=== PATIENT | female | born 1945 | race Caucasian/White ===

== ENCOUNTER 2018-02-06 15:13 | Outpatient (CLI) | payer MEDICARE, MEDICAID ==
[~2018-02-06 15:13] MED LIST: ALBU8.5H8 IH; ATEN50TA PO; DOXE150C PO; GABA-532 PO; HYDR-3876 PO; TEMA30CA5 PO
== END 2018-02-06 23:59 | disposition home or self-care (01) ==
LOC: 64 CT 15:13
PROVIDERS: ATTEND Family Medicine
DX: S00.83XA Contusion of other part of head, initial encounter (principal); F17.200 Nicotine dependence, unspecified, uncomplicated; I10 Essential (primary) hypertension; J44.9 Chronic obstructive pulmonary disease, unspecified; I25.2 Old myocardial infarction; Z91.041 Radiographic dye allergy status; X58.XXXA Exposure to other specified factors, initial encounter; Y93.89 Activity, other specified; Y92.89 Other specified places as the place of occurrence of the external cause; Y99.8 Other external cause status
CPT/HCPCS: 70450

== ENCOUNTER 2021-09-04 16:29 | Outpatient (CLI) | payer MEDICARE, MEDICAID ==
[~2021-09-04 16:29] MED LIST changes: +ALBU8.5H17 IH; -ALBU8.5H8 IH
[2021-09-04] MEDS ORDERED: HYDR-3965 PO (18:56)
[2021-09-04] MEDS ORDERED: ONDA4TAB12 PO (18:56)
== END 2021-09-04 23:59 | disposition home or self-care (01) ==
LOC: RAD 16:29
PROVIDERS: ATTEND Physician Assistant
DX: S52.501A Unspecified fracture of the lower end of right radius, initial encounter for closed fracture (principal); M25.741 Osteophyte, right hand; M19.041 Primary osteoarthritis, right hand; M19.012 Primary osteoarthritis, left shoulder; W18.30XA Fall on same level, unspecified, initial encounter; Y93.89 Activity, other specified; Y92.89 Other specified places as the place of occurrence of the external cause; Y99.8 Other external cause status
CPT/HCPCS: 29125; 73060; 73090; 73110; 73130; 99284; A4565; A6446; A6449

== ENCOUNTER 2021-09-04 17:38 | Emergency (ER) | payer MEDICARE, MEDICAID ==
[~2021-09-04] VITALS: Ht 149.9 cm; Wt 57.3 kg
[2021-09-04 17:40] VITALS: BP 146/59
[2021-09-04] MEDS ORDERED: HYDROcodone/acetaminophen 5mg/325mg tablet PO ONE (18:05)
[2021-09-04] MEDS ORDERED: ondansetron 4mg rapidly disintigrating tab PO ONE (18:05)
[2021-09-04] MEDS ORDERED: ONDA4TAB12 PO (18:56)
[2021-09-04] MEDS ORDERED: HYDR-3965 PO (18:56)
== END 2021-09-04 19:39 | disposition home or self-care (01) ==
LOC: ER 17:39
DX: S52.591A Other fractures of lower end of right radius, initial encounter for closed fracture (principal); I10 Essential (primary) hypertension; J44.9 Chronic obstructive pulmonary disease, unspecified; G89.29 Other chronic pain; Z90.49 Acquired absence of other specified parts of digestive tract; Z90.710 Acquired absence of both cervix and uterus; Z98.890 Other specified postprocedural states; Z79.899 Other long term (current) drug therapy; W18.39XA Other fall on same level, initial encounter; Y93.89 Activity, other specified; Y92.89 Other specified places as the place of occurrence of the external cause; Y99.8 Other external cause status
CPT/HCPCS: 29125; 99284; A4565; A6446; A6449

== ENCOUNTER 2023-01-19 15:11 | Emergency (ER) | payer MEDICARE, MEDICAID ==
[~2023-01-19] VITALS: Ht 144.8 cm; Wt 60.5 kg
[~2023-01-19 15:11] MED LIST changes: +ONDA4TAB12 PO
[2023-01-19 15:31] VITALS: TEMP 98.1
[2023-01-19] MEDS: normal saline 1000ml 1,000 ML IV SCH ×3 (16:30→18:30)
[2023-01-19] MEDS ORDERED: HYDROmorphone 1 mg/ml syringe IV ONE (16:30)
[2023-01-19] MEDS ORDERED: ondansetron/PF 4mg/2ml inj IV ONE (16:30)
[2023-01-19 17:17] LABS: HEMOGLOBIN 13.5 g/dl (12.0-16.0); MEAN PLATELET VOLUME 7.5 FL (7.4-10.4)
[2023-01-19 17:19] LABS: BASOPHILS # (AUTO) 0.1 X10'3 (0-0.2); BASOPHILS % (AUTO) 0.7 % (0-1); EOSINOPHILS # (AUTO) 0.3 X10'3 (0-0.9); EOSINOPHILS % (AUTO) 3.3 % (0-6); HEMATOCRIT 40.2 % (35.0-45.0); LYMPHOCYTES # (AUTO) 2.3 X10'3 (1.1-4.8); LYMPHOCYTES % (AUTO) 21.4 % (21-51); MEAN CORPUSCULAR HGB CONC 33.5 g/dL (33.0-36.5); MEAN CORPUSCULAR VOLUME 95.4 FL (78-98); MONOCYTES # (AUTO) 0.6 X10'3 (0-0.9); MONOCYTES % (AUTO) 5.7 % (2-12); NEUTROPHILS # (AUTO) 7.3 X10'3 (1.8-7.7); NEUTROPHILS % (AUTO) 68.9 % (42-75); PLATELET COUNT 226 X10'3 (140-440); RED BLOOD COUNT 4.21 X10'6 (4.20-5.60); RED CELL DISTRIBUTION WIDTH 13.9 % (11.5-14.5); WHITE BLOOD COUNT 10.6 X10'3 (4.5-11.0)
[2023-01-19 17:29] LABS: ALANINE AMINOTRANSFERASE 19 U/L (12-78); ALBUMIN 3.6 G/DL (3.4-5.0); ALBUMIN/GLOBULIN RATIO 0.9 (1.1-1.5); ALKALINE PHOSPHATASE 121 IU/L (46-116); ANION GAP 5 (8-16); ASPARTATE AMINO TRANSFERASE 17 U/L (10-37); BILIRUBIN,TOTAL 0.4 MG/DL (0.1-1.0); BLOOD UREA NITROGEN 9 MG/DL (7-18); BUN/CREATININE RATIO 9.6 (10.0-20.0); CHLORIDE 103 MMOL/L (99-107); CREATININE 0.94 MG/DL (0.40-0.90); GLUCOSE 103 MG/DL (70-104); LIPASE 37 U/L (16-77); POTASSIUM 4.4 MMOL/L (3.5-5.1); SODIUM 135 MMOL/L (135-145); TOTAL CARBON DIOXIDE 26.6 MMOL/L (24-32); TOTAL PROTEIN 7.5 G/DL (6.4-8.2); eCRCL 30 ML/MIN; eGFR 58 ML/MIN
[2023-01-19 17:56] VITALS: BP 173/59; PULSE 63; RESP 18; O2SAT 96
[2023-01-19 18:15] LABS: BILIRUBIN,URINE NEGATIVE (Neg); CLARITY,URINE CLOUDY (Clear); COLOR,URINE STRAW (Yellow); GLUCOSE, URINE NEGATIVE (Neg); KETONES,URINE NEGATIVE (Neg); LEUKOCYTE ESTERASE ,URINE NEGATIVE (Neg); NITRITES, URINE POSITIVE (Neg); OCCULT BLOOD,URINE SMALL (Neg); PROTEIN,URINE NEGATIVE (Neg); UROBILINOGEN,URINE 0.2 E.U/dL (0.2-1.0)
[2023-01-19 18:20] LABS: UA COLLECTION TYPE VOIDED
[2023-01-19 18:21] LABS: MUCUS STRANDS FEW /LPF (Neg)
[2023-01-19 18:22] LABS: BACTERIA,URINE 4+ /HPF (Neg); RBC,URINE 0-2 /HPF (0-2); WBC,URINE 0-4 /HPF (0-4)
[2023-01-19 19:03] LABS: SQUAMOUS EPITHELIAL CELL,UR FEW /LPF (FEW)
--- NOTE | 2023-01-19 19:09 | NUR ---
iv dc'd pt being discharged dressing applied
== END 2023-01-19 19:28 | disposition home or self-care (01) ==
LOC: ER 15:12
DX: S22.059A Unspecified fracture of T5-T6 vertebra, initial encounter for closed fracture (principal); S22.069A Unspecified fracture of T7-T8 vertebra, initial encounter for closed fracture; I10 Essential (primary) hypertension; J44.9 Chronic obstructive pulmonary disease, unspecified; Z98.890 Other specified postprocedural states; Z90.710 Acquired absence of both cervix and uterus; W19.XXXA Unspecified fall, initial encounter; Y93.89 Activity, other specified; Y92.89 Other specified places as the place of occurrence of the external cause; Y99.8 Other external cause status
CPT/HCPCS: 36415; 71111; 72074; 72128; 72131; 80053; 81001; 83690; 85025; 96374; 96375; 99285; J1170; J2405; J7030

== ENCOUNTER 2023-01-31 15:47 | Outpatient (CLI) | payer MEDICARE, MEDICAID | END 2023-01-31 23:59 | disposition home or self-care (01) | LOC: RAD 15:47 | PROVIDERS: ATTEND Family Medicine | DX: S22.050A Wedge compression fracture of T5-T6 vertebra, initial encounter for closed fracture (principal); X58.XXXA Exposure to other specified factors, initial encounter; Y93.89 Activity, other specified; Y92.89 Other specified places as the place of occurrence of the external cause; Y99.8 Other external cause status | CPT/HCPCS: 72146 ==

== ENCOUNTER 2023-07-07 15:22 | Outpatient (CLI) | payer MEDICARE, MEDICAID | END 2023-07-07 23:59 | disposition home or self-care (01) | LOC: RAD 15:22 | PROVIDERS: ATTEND Family Medicine | DX: S82.54XD Nondisplaced fracture of medial malleolus of right tibia, subsequent encounter for closed fracture with routine healing (principal); S82.891D Other fracture of right lower leg, subsequent encounter for closed fracture with routine healing; X58.XXXD Exposure to other specified factors, subsequent encounter | CPT/HCPCS: 73700 ==

== ENCOUNTER 2024-01-14 15:38 | Outpatient (CLI) | payer MEDICARE, MEDICAID ==
[~2024-01-14 15:38] MED LIST changes: +ONDA-243 PO; -ONDA4TAB12 PO
== END 2024-01-14 23:59 | disposition home or self-care (01) ==
LOC: RAD 15:38
PROVIDERS: ATTEND Student in an Organized Health Care Education/Training Program
DX: S82.891D Other fracture of right lower leg, subsequent encounter for closed fracture with routine healing (principal); S22.029D Unspecified fracture of second thoracic vertebra, subsequent encounter for fracture with routine healing; M25.471 Effusion, right ankle; M85.871 Other specified disorders of bone density and structure, right ankle and foot; X58.XXXD Exposure to other specified factors, subsequent encounter
CPT/HCPCS: 73610

== ENCOUNTER 2024-04-02 08:17 | Emergency (ER) | payer MEDICARE, MEDICAID ==
[~2024-04-02] VITALS: Ht 149.9 cm; Wt 59.1 kg
[2024-04-02 16:22] VITALS: TEMP 96.8
[2024-04-02] MEDS: LIDOcaine 1% W/epiNEPHrine 1:100,000 20ml vial SQ ONE (16:26)
[2024-04-02 17:38] VITALS: BP 160/57; PULSE 66; RESP 16; O2SAT 94
== END 2024-04-02 17:41 | disposition home or self-care (01) ==
LOC: ER 08:18
DX: S06.0XAA Concussion with loss of consciousness status unknown, initial encounter (principal); S01.01XA Laceration without foreign body of scalp, initial encounter; J44.9 Chronic obstructive pulmonary disease, unspecified; I10 Essential (primary) hypertension; Z90.710 Acquired absence of both cervix and uterus; Z90.49 Acquired absence of other specified parts of digestive tract; Z98.890 Other specified postprocedural states; W19.XXXA Unspecified fall, initial encounter; Y93.01 Activity, walking, marching and hiking; Y92.89 Other specified places as the place of occurrence of the external cause; Y99.8 Other external cause status
CPT/HCPCS: 12001; 70450; 71045; 99284; A6402; A6446; A6449; J7030; Z7610

== ENCOUNTER 2024-11-20 02:04 | Inpatient (IN) | payer MEDICARE, MEDICAID ==
[2024-11-20] VITALS (8 sets, daily range): BP systolic 142; BP diastolic 50; PULSE 72–79; RESP 15–24; TEMP 98.2; O2SAT 95–99
[~2024-11-20] VITALS: Ht 144.8 cm; Wt 53.8 kg
[~2024-11-20 02:04] MED LIST changes: +ASPI-1071 PO; +ATOR10TA70 PO; +DULO60CA65 PO; +LISI10TA27 PO; -ONDA-243 PO; -TEMA30CA5 PO; +ZAFI20TA PO; +ZOLP5TAB18 PO
--- NOTE | 2024-11-20 02:17 | Physician Documentation ---
History of Present Illness ~ Stated Complaint: ALOC/COVID Time Seen by MD: 02:14 Primary Medical Doctor: Dr. Harding HPI 79-year-old female who presents by EMS from a [place] [facility], with altered mental status The patient reportedly tested positive for COVID-19 a couple of days ago. Today she reportedly was doing well until around 8:00 p.m., and then this evening was found minimally responsive. EMS reports she was wheezing and so she was given a breathing treatment. Her oxygen saturations were in the 90s. Here in the ED, the patient is somnolent, but does awaken to voice and follows some simple commands. I can not understand her speech. History is limited Medication Reconciliation Allergies: Coded Allergies: morphine (Verified Allergy, Unknown, itchiness, redness, swelling of fingers, 10/09/24) Uncoded Allergies: IV CONTRAST (Allergy, Intermediate, WELTS, REDNESS, SWELLING, 10/05/24) Scheduled Aspirin (Ecotrin*), 1 TAB PO DAILY, (Reported) Atenolol (Atenolol), 1 TABLET PO HS, (Reported) Atenolol (Atenolol), 1 TAB PO DAILY, (Reported) Atenolol (Atenolol), 1 TAB PO DAILY, (Reported) Atorvastatin Calcium (Atorvastatin Calcium), 1 TAB PO DAILY, (Reported) Doxepin Hcl (Doxepin Hcl), 150 MG PO HS, (Reported) Duloxetine HCl (Duloxetine HCl), 2 CAP PO DAILY, (Reported) Gabapentin (Gabapentin), 300 MG PO TID, (Reported) Lisinopril (Lisinopril), 1 TAB PO DAILY, (Reported) Zafirlukast (Zafirlukast), 1 TAB PO BID, (Reported) Zolpidem Tartrate (Zolpidem Tartrate), 10 MG PO HS, (Reported) Scheduled PRN Albuterol Sulfate (Proair Hfa), 2 PUFFS IH Q4H PRN for SOB or wheezing Hydrocodone Bit/Acetaminophen (Hydrocodon-Acetaminophn 10-325 tablet), 1 TAB PO Q4H PRN for pain, (Reported) Hydrocodone Bit/Acetaminophen (Hydrocodon-Acetaminophn 10-325 tablet), 1 TAB PO Q4H PRN for pain, (Reported) Hydrocodone/Acetaminophen (Lortab 7.5-325 mg Tablet), 1 TAB PO Q8H PRN for pain, (Reported) Ropinirole Hcl (REQUIP tablet), 1 TAB PO HS PRN for restless legs, (Reported) Ropinirole Hcl (REQUIP tablet), 1 TAB PO HS PRN for restless legs, (Reported) Miscellaneous Medications Doxepin HCl (Doxepin HCl), (Reported) Doxepin HCl (Doxepin HCl), (Reported) Gabapentin (Neurontin), (Reported) Gabapentin (Neurontin), (Reported) Zolpidem Tartrate (Ambien), (Reported) Zolpidem Tartrate (Ambien), 1 TAB PO, (Reported) Zolpidem Tartrate (Ambien), (Reported) Zolpidem Tartrate (Ambien), 1 TAB PO, (Reported) Past Medical History Past Medical History: *CARDIOVASCULAR*, Hypertension, COPD, Chronic Back Pain Past Surgical History: abdominal surgery, appendectomy, cholecystectomy, c- section, hysterectomy, orthopedic surgeries Alcohol Use: None Drug Use: none Lives In: Home Review of Systems Unable to obtain complete ROS: altered mental status Physical Exam Physical Exam General: This is an ill-appearing older woman HEENT: Atraumatic, pupils are 3 mm and sluggish, oropharynx is dry Heart: Regular rate and rhythm, normal-appearing peripheral perfusion Lungs: Coarse breath sounds bilateral with expiratory wheezes, no respiratory distress, normal oxygen saturation on room air Abdomen: Soft, nondistended, no reaction to palpation of the abdomen Extremities: Warm and well-perfused, no significant edema Neuro: The patient is not alert, does not answer questions, but does follow some simple commands, appears to have a global encephalopathy but no focal weakness, moves all extremities Progress Results/Orders Results/Orders Orders - HOA LISA MD Urinalysis, Cult If Indicated (11/20/24 02:30) Culture Blood (11/20/24 02:30) Chest,Single View (11/20/24 02:40) Abg (Arterial Blood Gas) (11/20/24 02:51) Ct Head (11/20/24 03:55) Page Hospitalist (11/20/24 04:26) Completed Orders - HOA LISA MD Electrocardiogram (11/20/24 02:30) Cbc/Diff (11/20/24 02:30) MG (11/20/24 02:30) Chest,Single View (11/20/24 02:40) Procalcitonin (11/20/24 02:30) BMP (11/20/24 02:30) Lacticsepsis (11/20/24 02:30) Man Diff (11/20/24 02:44) Normal Saline 500ml Iv Soln (Sodium Chlo (11/20/24 03:45) Ct Head (11/20/24 03:55) Medications Received in ER Medications (Trade) Dose Ordered Sig/Libra Route PRN Reason Start Time Stop Time Status Last Admin Dose Admin Sodium Chloride 500 ml @ 1,000 mls/hr ONCE ONCE IV 11/20/24 03:45 11/20/24 04:14 DC 11/20/24 04:08 1,000 MLS/HR Vital Signs 11/20/24 11/20/24 11/20/24 11/20/24 02:13 02:21 02:26 03:37 Temp 98.4 Pulse 66 63 71 Resp 26 16 14 14 B/P (MAP) 104/74 104/74 (84) 114/48 (70) Pulse Ox 100 99 99 Laboratory Tests Test 11/20/24 02:44 11/20/24 03:01 White Blood Count 6.3 Red Blood Count 3.28 L Hemoglobin 10.3 L Hematocrit 30.6 L Mean Corpuscular Volume 93.5 Mean Corpuscular Hemoglobin 31.3 H Mean Corpuscular Hemoglobin Concent 33.5 Red Cell Distribution Width 14.6 H Platelet Count 188 Mean Platelet Volume 7.6 Neutrophils (%) (Auto) 57.5 Lymphocytes (%) (Auto) 25.3 Monocytes (%) (Auto) 16.8 H Eosinophils (%) (Auto) 0.1 Basophils (%) (Auto) 0.3 Neutrophils # (Auto) 3.6 Lymphocytes # (Auto) 1.6 Monocytes # (Auto) 1.1 H Eosinophils # (Auto) 0.0 Basophils # (Auto) 0.0 CBC Comment Differential Total Cells Counted 100 Neutrophils % (Manual) 67.0 Lymphocytes % (Manual) 19.0 L Monocytes % (Manual) 14.0 H Platelet Estimate Normal Red Blood Cell Morphology Normal Basophilic Stippling Sodium Level 138 Potassium Level 5.0 Chloride Level 107 Carbon Dioxide Level 24.2 Anion Gap 7 L Blood Urea Nitrogen 54 H Creatinine 1.10 H Estimated GFR/1.73 m2 48 BUN/Creatinine Ratio 49.1 H Glucose Level 115 H Lactic Acid Level 1.0 Calcium Level 7.3 L Magnesium Level 2.5 H Albumin 2.5 L Procalcitonin < 0.05 Chemistry Comments Blood Gas Specimen Type Arterial Blood Gas Puncture Site Rb O2 Saturation 97.5 Arterial Blood pH (Temp corrected) 7.327 L Arterial Blood pCO2 (Temp correct) 37.5 Arterial Blood pO2 (Temp corrected) 108.4 H Arterial Blood PO2/FiO2 Ratio 2.70 Arterial Blood HCO3 19.1 L Arterial Blood Base Excess -6.2 L Arterial Blood Oxyhemoglobin 96.9 Arterial Blood Carboxyhemoglobin 0.3 L Arterial Blood Methemoglobin 0.3 Arterial Blood Deoxyhemoglobin 2.5 Joaquin Test Na Blood Gas Hemoglobin 11.2 L Blood Gas Temperature 37.1 Blood Gas Liter Flow 5 Blood Gas Modality Nasal cannula FiO2 40.0 Microbiology Date/Time Source Procedure Growth Status 11/20/24 02:44 Blood A/C Left Blood Culture - Preliminary NEGATIVE (LESS THAN 24 HOURS) Resulted EKG/XRAY/CT/US/VASC/MRI EKG : Additional Comment I personally interpreted the EKG and this shows: Left bundle branch block, rate of 65, QTC elevated 549, no STEMI CT : Impression I personally interpreted the CT scan, and this shows no acute hemorrhage Consults/PCP Consults/PCP : Additional Comment Consult: I spoke to the internal medicine service, for admission in the hospital Medical Decision Making Differential Dx:Considerations: Include: dehydration, DKA, encephalopathy, hyponatremia, hypoxia, drug overdose, encephalopathy, medication toxicity, infection - sepsis, infection - UTI, respiratory failure Additional Information The patient presents with altered mental status in the setting of a reported COVID-19 infection. Here in the ED she is altered, but is following some simple commands. She appears to have a global encephalopathy. EKG is reassuring. She is not hypoxic. ABG is reassuring, no hypercarbia. Labs overall show mild dehydration. Head CT without acute hemorrhage. Chest x-ray without pneumonia. The cause of her encephalopathy appears to be related to her COVID infection and dehydration. Urinalysis is pending, she could also have a UTI. She will be admitted to the medicine service for further workup and treatment. Departure Impression: Primary Impression: COVID-19 Additional Impression: Encephalopathy acute Referrals: NO PRIMARY CARE PROVIDER (PCP) Signature Scribe Signature: na Attestation: HOA Daniels MD Nov 20, 2024 02:17
--- NOTE | 2024-11-20 02:31 | ELECTROCARDIOGRAPH REPORT ---
[facility] Test Date: 2024-11-20 Test Time: 02:15:19 Pat Name: JULIANA SINGLETON Department: EMERGENCY ROOM Room: [place] [address] Gender: F [employer] Analyst: MOHINDER : 1945 Requested By: HOA LISA Order Number: [id number] Reading MD: Dr. Tony Godoy Measurements Intervals [place] Rate: 65 P: 12 CO: 143 QRS: -20 QRSD: 153 T: 69 QT: 527 QTc: 549 Interpretive Statements Atrial-paced complexes Left bundle branch block Electronically Signed On 11-25-2024 21:46:[address] Tony Godoy Please click the below link to view image of tracing.
--- NOTE | 2024-11-20 03:00 | RADIOLOGY REPORT ---
CHEST RADIOGRAPH Indication: SEPSIS Technique: Single frontal view of the chest was obtained COMPARISON: NM NM LUNGS on DOS: 10/06/24, DI CHEST,SINGLE VIEW on DOS: 10/05/24, DI CHEST,SINGLE VIEW on DOS: 04/02/24, DI SANDRINE RIBS WITH PA CHEST on DOS: 01/19/23, DI THORACIC SPINE COMPLETE on DOS: 01/19/23 FINDINGS: Lines and Tubes: None Lungs: Clear Pleura: No effusion. No pneumothorax. Cardiomediastinal contours: Unremarkable Bones: Unremarkable IMPRESSION: 1. No acute disease.
[2024-11-20 03:07] LABS: ABG BASE EXCESS -6.2 mmol/L (-2.0-3.0); ABG HCO3 19.1 mmol/L (21.0-28.0); ABG OXYGEN SATURATION 97.5 % (94.0-98.0); ABG PCO2 (T) 37.5 mmHg (32.0-45.0); ABG PH (T) 7.327 (7.350-7.450); ABG PO2 (T) 108.4 mmHg (83.0-108.0); FCOHb 0.3 % (0.5-1.5); FHHb 2.5 % (0.0-5.0); FIO2 40.0 mmHg/%; FLOW 5 L/min; FMetHb 0.3 % (0.0-1.5); FO2Hb 96.9 % (94.0-98.0); MODE NASAL CANNULA; PATIENT TEMPERATURE 37.1; TOTAL HEMOGLOBIN 11.2 G/dl (12.0-16.0)
[2024-11-20 03:08] LABS: MEAN PLATELET VOLUME 7.6 FL (7.4-10.4); RED CELL DISTRIBUTION WIDTH 14.6 % (11.5-14.5)
[2024-11-20 03:33] LABS: CREATININE 1.10 MG/DL (0.40-0.90); LYMPHOCYTES % (MANUAL) 19.0 % (21-51); MONOCYTES % (MANUAL) 14.0 % (2-12); NEUTROPHILS % (MANUAL) 67.0 % (42-75); TOTAL CARBON DIOXIDE 24.2 MMOL/L (24-32); eCRCL 25 ML/MIN; eGFR 48 ML/MIN
[2024-11-20 03:34] LABS: PLATELET ESTIMATE NORMAL
[2024-11-20] MEDS: normal saline 500ml IV soln 500 ML IV ONE ×2 (04:08→10:45)
--- NOTE | 2024-11-20 04:21 | RADIOLOGY REPORT ---
EXAM: CT CT HEAD INDICATION: altered, COVID TECHNIQUE: CT of the head without intravenous contrast. Radiation Dose : 1. Head: CT Dose: CTDI volume is 49.01 mGy. Dose-length product is 876.09 mGy*cm The dose indicators for CT are the volume Computed Tomography (CT) Dose Index (CTDIvol) and the Dose Length Product (DLP), and are measured in units of mGy and mGy-cm, respectively. These indicators are not patient dose, but values generated from the CT scanner acquisition factors. The report includes radiation exposure data for exposures received during this examination. COMPARISON: CT CT HEAD on DOS: 10/07/24, CT CT HEAD on DOS: 04/02/24, CT HEAD on DOS: 02/06/18 FINDINGS: There is no evidence of acute intracranial hemorrhage, extra-axial collection, mass effect, midline shift, herniation or hydrocephalus. Increased prominence of the ventricles, sulci and cisterns consistent with the sequelae of atrophic cortical volume loss. The ryan-white differentiation is intact. Moderate diffuse confluent periventricular and subcortical white matter hypoattenuation is nonspecific but may be related to small vessel ischemic disease. The visualized paranasal sinuses and mastoid air cells are clear. The surrounding soft tissues and osseous structures are unremarkable. IMPRESSION: 1. No acute intracranial abnormality. 2. Chronic sequelae of microangiopathy and atrophic cortical volume loss. Radiation optimization: All CT scans at this facility use at least one of these dose optimization techniques: automated exposure control mA and/or kV adjustment per patient size (includes targeted exams where dose is matched to clinical indication) or iterative reconstruction.
[2024-11-20] MEDS ORDERED: ZOLP-679 PO (04:33)
[2024-11-20] MEDS ORDERED: GABA300C (04:33)
[2024-11-20] MEDS ORDERED: ROPI0.2544 PO (04:33)
[2024-11-20] MEDS ORDERED: HYDR-3972 PO (04:33)
[2024-11-20] MEDS ORDERED: DOXE50CA4 (04:33)
[2024-11-20] MEDS ORDERED: ZOLP-679 (04:33)
[2024-11-20] MEDS ORDERED: ATEN50TA8 PO (04:33)
[2024-11-20] MEDS ORDERED: magnesium sulf-water 2g/50mL 50 ML IV PRN (04:35)
[2024-11-20] MEDS ORDERED: PERFLUTREN PROTEIN-A MICROSPHR (Optison) 0.22 MG/ML 3ML VIAL IV PRN (04:35)
[2024-11-20] MEDS ORDERED: magnesium sulf-water 4G/100mL 100 ML IV PRN (04:35)
[2024-11-20] MEDS ORDERED: magnesium Cl slow-release 64mg tablet PO PRN (04:35)
[2024-11-20] MEDS ORDERED: potassium Cl 40MEQ/1/2NS 520ml 520 ML IV PRN (04:35)
[2024-11-20] MEDS ORDERED: potassium Cl 20 mEq SR tablet PO PRN ×2 (04:35)
[2024-11-20] MEDS ORDERED: magnesium hydroxide 30ml (MOM) UD suspension PO PRN (04:35)
[2024-11-20] MEDS ORDERED: mag hydrox/Alum hydrox/simeth 30ml oral suspension PO PRN (04:35)
--- NOTE | 2024-11-20 05:22 | HISTORY AND PHYSICAL-Residence ---
History & Physical Providers to CC Resident Creating Document: EDDIE SCOTT, RES ~ History of Present Illness Primary Medical Doctor: Dr. Harding Reason for Admit\Complaint: COVID/metabolic encephalopathy History of Present Illness An 79-year-old female with COPD, HTN, chronic pain, depression and a prior September admission for acute dyspnea (CXR with left and right opacities; echo Sep: LVEF 65%, V/Q negative) who [facility] with [facility] status. She tested COVID-19 positive a few days ago. Tonight she was found minimally responsive, wheezing and somnolent; EMS gave bronchodilator treatments and O2 (saturation in the 90s). In ED she is somnolent but arousable to voice and follows some commands, speech difficult to understand. No clear focal neurologic deficit. Labs here: Hgb 10.3, MCV 93.5, RDW 14.6; ABG pH 7.32, pCO2 37.5, HCO3 ~19 (mild metabolic acidosis); creatinine 1.10, glucose 115, lactic acid 1.0; procalcitonin negative. Noncontrast head CT: no acute intracranial hemorrhage; chronic microvascular changes. Chest x-ray today normal. Blood cultures sent. Patient currently hemodynamically stable but with encephalopathy and respiratory wheeze in the setting of recent COVID. Allergies: Coded Allergies: morphine (Verified Allergy, Unknown, itchiness, redness, swelling of fingers, 10/09/24) Uncoded Allergies: IV CONTRAST (Allergy, Intermediate, WELTS, REDNESS, SWELLING, 10/05/24) Home Medications Home Medications Active Proair Hfa (Albuterol Sulfate) 8.5 Gm Hfa.aer.ad 2 Puffs IH Q4H PRN Reported Ambien (Zolpidem Tartrate) 10 Mg Tablet 1 Tab PO Ambien (Zolpidem Tartrate) 10 Mg Tablet Atenolol 50 Mg Tablet 1 Tab PO DAILY REQUIP tablet (Ropinirole Hcl) 0.25 Mg Tablet 1 Tab PO HS PRN Neurontin (Gabapentin) 300 Mg Capsule Hydrocodon-Acetaminophn 10-325 tablet (Acetaminophen/Hydrocodone Bitart) 10mg- 325mg Tablet 1 Tab PO Q4H PRN Doxepin HCl 50 Mg Capsule Ambien (Zolpidem Tartrate) 10 Mg Tablet 1 Tab PO Ambien (Zolpidem Tartrate) 10 Mg Tablet Atenolol 50 Mg Tablet 1 Tab PO DAILY REQUIP tablet (Ropinirole Hcl) 0.25 Mg Tablet 1 Tab PO HS PRN Neurontin (Gabapentin) 300 Mg Capsule Hydrocodon-Acetaminophn 10-325 tablet (Acetaminophen/Hydrocodone Bitart) 10mg- 325mg Tablet 1 Tab PO Q4H PRN Doxepin HCl 50 Mg Capsule Ecotrin* (Aspirin) 81 Mg Tablet.dr 1 Tab PO DAILY 30 Days Atorvastatin Calcium 10 Mg Tablet 1 Tab PO DAILY Zafirlukast 20 Mg Tablet 1 Tab PO BID Lisinopril 10 Mg Tablet 1 Tab PO DAILY Duloxetine HCl 60 Mg Capsule.dr 2 Cap PO DAILY Zolpidem Tartrate 5 Mg Tablet 10 Mg PO HS 30 Days Doxepin Hcl 150 Mg Capsule 150 Mg PO HS Lortab 7.5-325 mg Tablet (Hydrocodone/Acetaminophen) 1 Each Tablet 1 Tab PO Q8H PRN Gabapentin 300 Mg Capsule 300 Mg PO TID Atenolol 50 Mg Tablet 1 Tablet PO HS Past Medical History Past Medical History Hypertension Chronic pain disorder Depression COPD Allergies Past Surgical History Surgical History Comment Multiple orthopedic surgeries: Right ankle repair surgery Complicated cholecystectomy leading to exploratory laparotomy Past Social History Social History Comment Based on past medical records: Smokes over half pack of cigarettes per day for 55 years, no alcohol /illicit use of drugs Based on past medical records: Patient ambulates independently without use of any assistive devices currently was transferred from a nursing facility Smoking: Cigarettes Alcohol Use: None Drug Use: None Lives In: Home ROS ROS Could not be obtained Unable to obtain: altered mental status Exam Vitals: Vital Signs Date Time Temp Pulse Resp B/P (MAP) Pulse Ox O2 Delivery O2 Flow Rate FiO2 11/20/24 04:47 67 16 104/58 (73) 99 11/20/24 02:13 98.4 General: ANO x1, drowsy and difficult to arouse HEENT: Atraumatic, normocephalic, EOMI, anicteric sclera ; pale conjunctiva Neck: Trachea midline. Supple, full range of motion, no JVD Cardiac: Regular rhythm, regular rate with no murmurs all over the precordium. Respiratory: Diminished breath sounds with wheezing Gastrointestinal: Abdomen symmetric, non-distended, soft, non-tender, a linear abdominal scar present Musculoskeletal: No pedal edema Neurological: Could not be performed Skin: Warm and dry Diagnostic Data Last Recorded Lab Results: 11/20/24 0244 11/20/24 0244 Advance Care Planning Advanced Care plannin - 30 Minutes Additional Plan 1) Altered mental status (AMS) acute/subacute Metabolic encephalopathy in the setting of recent COVID Assessment: Differentials include infection-related delirium, metabolic factors (mild metabolic acidosis), hypoxia/hypercapnia (currently no hypercapnia) Plan: Admit for serial neurologic checks q1h Hold sedating medications (Otisco, Ambien, doxepin, other [employer] depressants) Workup: Ca: 7.3, M.5, Phosphate-ordered, LFTs ordered, TSH ordered and glucose 115 Blood cultures pending Clinically did not appear as opioid overdose If AMS not improving or focal deficits develop, neurology consult and consider repeat head CT/MRI UA tox ordered Ammonia levels ordered Urinalysis with cultures pending Ethyl alcohol level ordered 2) COVID-19, symptomatic (recent positive) Assessment: COVID positive with respiratory wheeze and altered mentation; oxygen saturations in the 90s on room air currently (no clear hypoxemic respiratory failure now) No evidence of bacterial superinfection (procalcitonin negative Plan: Contact precautions / COVID isolation Supportive care: supplemental O2 PRN to maintain SpO2 above 92%. As patient is currently on 2 L of oxygen, she qualifies for steroids hence initiated dexamethasone 6 mg daily Initiated remdesivir for 200 mg IV day 1 followed by 100 mg IV for 4 days Please consult ID in a.m. Monitor respiratory status closely 3) COPD exacerbation with wheeze Assessment: Wheeze treated by EMS with nebulizers; no current hypoxemia. Likely COPD exacerbation triggered by viral illness (COVID) Plan: Bronchodilator therapy: albuterol/ipratropium nebulizer PRN Ordered IV dexamethasone 6 mg daily for 7 days Ordered ceftriaxone plus azithromycin Incentive spirometry once stable 4) Metabolic acidosis (ABG pH 7.32, HCO3 19) DORIS, prerenal Assessment: Mild metabolic acidosis without elevated lactate; etiology likely multifactorial Plan: Repeat BMP and arterial blood gas 12h to trend pH and bicarbonate If worsening acidosis or evidence of hypoperfusion, consider consulting nephrology Creatinine is currently 1.10, normal in September, continue IV fluids at 100 cc/hour Urine lytes ordered 5) Infection / sepsis evaluation Assessment: COVID positive; no current evidence of bacterial sepsis (normal lactate, procalcitonin negative) Plan: Continue blood cultures x2 Antibiotics as above Monitor vitals, lactate, CBC. 6) Anemia-normocytic normochromic Assessment: Hgb 10.3, mild anemia chronic. No acute bleeding. Plan: Monitor CBC daily Iron studies ordered follow up 7. Hypertension: Continue home medications lisinopril and atenolol after med rec 8. Chronic pain disorder: Hold gabapentin and Otisco until patient's mentation is back to baseline 9. Allergies: Continue home medications zafirlukast after med rec 10: Depression: Hold home medications duloxetine doxepin for now 11. Insomnia: Hold home medication Ambien Code Status: Full Code (according to POLST form at bedside) DVT Prophylaxis: Heparin SQ Eddie Scott MD Internal Medicine Resident, PGY-2 agree w/ care and plan chart reviewed and patient assessed Date of Service: Nov 20, 2024 Billing Provider: SHAWANDA FAULKNER MD, GAURAV, RES Nov 20, 2024 05:22 SHAWANDA FAULKNER MD Nov 20, 2024 11:16
[2024-11-20] MEDS: normal saline 1000ml 1,000 ML IV SCH (05:33)
[2024-11-20] MEDS ORDERED: ipratropium/albuterol 3ml nebule NEB PRN (05:40)
[2024-11-20] MEDS ORDERED: REMDESIVIR INJ (loading dose) 200 MG in normal saline 100ml IV soln 100 ML IV ONE (05:40)
[2024-11-20] MEDS ORDERED: ipratropium/albuterol 3ml nebule NEB SCH (07:00)
[2024-11-20] MEDS: CefTRIAXone/D5W-Rocephin 1gm 50 ML IV SCH (07:37)
[2024-11-20] MEDS: azithromycin/NS 500mg/250ml 250 ML IV SCH (07:37)
[2024-11-20] MEDS: heparin, porcine 5000 units/ml vial SQ SCH (07:38)
[2024-11-20] MEDS: K and/or MAG REPLACEMENT MC SCH (07:38)
[2024-11-20 07:45] LABS: MEAN PLATELET VOLUME 7.5 FL (7.4-10.4); RED CELL DISTRIBUTION WIDTH 15.1 % (11.5-14.5)
[2024-11-20] MEDS: dexamethasone 4mg/ml inj IV SCH (07:51)
[2024-11-20] MEDS: docusate sod 100mg capsule PO SCH (07:51)
[2024-11-20] MEDS ORDERED: REMDESIVIR INJ (loading dose) 100 MG in normal saline 100ml IV soln 100 ML IV SCH (08:00)
[2024-11-20 08:47] LABS: CREATININE 1.00 MG/DL (0.40-0.90); PHOSPHORUS 3.6 MG/DL (2.3-4.5); TOTAL CARBON DIOXIDE 23.3 MMOL/L (24-32); eCRCL 27 ML/MIN; eGFR 53 ML/MIN
[2024-11-20] MEDS: acetaminophen 1,000mg/100ml IV 100 ML IV SCH (09:14)
[2024-11-20 09:26] LABS: ETHANOL < 10 MG/DL (<10)
[2024-11-20 09:41] LABS: % IRON SATURATION 8 % (11-46)
[2024-11-20] MEDS: LidoCAINE 2% Topical Jelly 11mL syringe (UROJET) TOP ONE (10:45)
[2024-11-20 12:31] LABS: PRO BRAIN NATRIURETIC PEPTIDE 154 PG/ML (0-450)
[2024-11-20 12:33] LABS: OSMOLALITY 304 MOSM/K (280-300)
[2024-11-20] MEDS: albuterol 60 PUFF/8GM Inhaler (90mcg/1 puff) IH SCH (12:33)
[2024-11-20] MEDS ORDERED: acetaminophen 1,000mg/100ml IV 100 ML IV SCH (14:00)
[2024-11-20 14:26] LABS: LEUKOCYTE ESTERASE ,URINE NEGATIVE (Neg); NITRITES, URINE POSITIVE (Neg); OCCULT BLOOD,URINE NEGATIVE (Neg)
[2024-11-20 14:31] LABS: UA COLLECTION TYPE FOLEY CATH
[2024-11-20 14:33] LABS: CREATININE,URINE RANDOM 59.0 MG/DL; MUCUS STRANDS FEW /LPF (Neg); SQUAMOUS EPITHELIAL CELL,UR FEW /LPF (FEW); URINE AMPHETAMINE SCREEN NEGATIVE (Neg); URINE BARBITUATE SCREEN NEGATIVE (Neg); URINE BENZODIAZEPINES SCREEN NEGATIVE (Neg); URINE CANNABINOID SCREEN NEGATIVE (Neg); URINE COCAINE SCREEN NEGATIVE (Neg); URINE METHADONE SCREEN NEGATIVE (Neg); URINE OPIATE SCREEN POSITIVE (Neg); URINE PHENCYCLIDINE SCREEN NEGATIVE (Neg)
[2024-11-20 14:38] LABS: OSMOLALITY UA 519.0 MOSM/K (50-1400)
[2024-11-20 15:01] LABS: TOTAL PROTEIN,URINE RANDOM 29.6 MG/DL
--- NOTE | 2024-11-20 15:36 | RADIOLOGY REPORT ---
COMPUTERIZED TOMOGRAPHY CHEST/ABDOMEN/PELVIS WITHOUT INTRAVENOUS CONTRAST CLINICAL HISTORY: sepsis COMPARISON: None TECHNIQUE: Axial CT images of the chest, abdomen and pelvis were obtained. 2-D coronal and sagittal reformatted images were provided. Radiation optimization: All CT scans at this facility use at least one of these dose optimization techniques: Automated exposure control mA and/or kV adjustment per patient size (includes targeted exams where dose is matched to clinical indication) or iterative reconstruction. RADIATION DOSE: CTDI: 26 mGy DLP: 1968 mGy-cm FINDINGS: CHEST: There is interlobular septal thickening. There is subpleural reticulation. There is mild panlobular emphysematous change. There is subtle, scattered airspace disease at the periphery of all lobes of the lungs. There is no bronchiectasis or honeycombing. There is bronchial wall thickening consistent w ith bronchitis. There is no pleural effusion. There is no pneumothorax. The visualized thyroid gland is grossly unremarkable. The heart is within normal limits for size. There is no pericardial effusion. There is no thoracic aortic aneurysm. There is extensive aortic atherosclerosis. There is no pathologic lymphadenopathy in the chest by size criteria. There is skin thickening and subcutaneous fat stranding at the anterior aspect of the left shoulder region with subcutaneous gas concerning for injury or infection. ABDOMEN/PELVIS: The spleen is not enlarged. The liver is normal in size and contour. There is nondependent pneumobilia in the left intrahepatic biliary tree. The gallbladder is not seen and may be absent. Evaluation of the abdominal organs is suboptimal in the absence of intravenous contrast. Unenhanced appearance of the pancreas is unremarkable. The left adrenal gland is normal. 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 The kidneys are similar in size. There is no hydronephrosis of either kidney. There is a Rosenthal catheter balloon within the bladder. Evaluation of the pelvis is severely degraded by streak artifact from the left hip prosthesis. The uterus appears to be absent. The ovaries are not seen. There is extensive sigmoid diverticulosis. There is no evidence of diverticulitis within the limitations of streak artifact. The colonic stool burden is small. The appendix is not seen. There is no pericecal inflammatory change to suggest acute appendicitis. There is no pathologic distention of the small bowel. There is a left common iliac artery stent. There is severe compression fracture of T7 with acute features. There is approximately 3 mm bony retropulsion. IMPRESSION: Subtle scattered airspace disease in the periphery of all lobes of the lungs concerning for multifocal pneumonia. Skin thickening and subcutaneous fat stranding at the anterior aspect of the left shoulder region with subcutaneous gas concerning for injury or infection. Bronchial wall thickening consistent with bronchitis. Mild emphysema. Pneumobilia. Correlate clinically for prior ERCP or other biliary procedure. Severe compression fracture of T7 with acute features and 3 mm bony retropulsion. Correlate clinically for acute mid back pain. MRI can be performed if clinically indicated.
[2024-11-20] MEDS: insulin regular, human 10 units/0.1 ml syringe IV ONE (16:07)
[2024-11-20] MEDS: dextrose 50%-water 50ml dispensing syringe IV ONE (16:08)
[2024-11-20] MEDS: sodium bicarbonate (8.4%) 1 mEq/ml syringe IV ONE (16:08)
[2024-11-20] MEDS: sodium polystyrene sulfonate 15gm/60ml oral suspension PO ONE (16:08)
[2024-11-20] MEDS ORDERED: HYDROmorphone inj. 0.5 MG/0.5 ML DISP.SYRIN IV PRN (16:55)
[2024-11-20] MEDS: HYDROcodone/acetaminophen 10/325mg tab PO PRN (17:33)
[2024-11-20 18:13] LABS: PHOS, URINE RANDOM 75.6 MG/DL
[2024-11-21] VITALS (16 sets, daily range): BP systolic 142–171; BP diastolic 41–72; PULSE 77–116; RESP 14–20; TEMP 97.7–98.4; O2SAT 92–97
[2024-11-21 06:53] LABS: MEAN PLATELET VOLUME 7.4 FL (7.4-10.4); RED CELL DISTRIBUTION WIDTH 14.8 % (11.5-14.5)
[2024-11-21 07:48] LABS: CHOL/HDL RATIO 3.2 (0.00-4.99); CREATININE 0.80 MG/DL (0.40-0.90); LDL CHOLESTEROL 50 MG/DL (50-100); TOTAL CARBON DIOXIDE 20.9 MMOL/L (24-32); eCRCL 34 ML/MIN; eGFR 69 ML/MIN
[2024-11-21 12:31] LABS: C DIFF ANTIGEN NEGATIVE (NEGATIVE); C DIFF SPECIMEN=DIARRHEA? ACCEPTABLE; C DIFFICILE TOXINS A&B NEGATIVE (Neg)
[2024-11-21] MEDS: HYDROcodone/acetaminophen 5mg/325mg tablet PO PRN (15:01)
--- NOTE | 2024-11-21 16:51 | PROGRESS NOTE ---
Daily Progress Note Providers to CC ~ chief complaint, cough, still present, on and off, no sputum production Central Line/PICC still needed: No Rosenthal-Non Protocol Rosenthal Indications Met/Not Met: F/C Indications Not Met Antibiotic Timeout Antibiotic Ordered?: Yes MRSA Education MRSA Education Provided to pt: Yes Subjective As above Objective Vital Signs Date Time Temp Pulse Resp B/P (MAP) Pulse Ox O2 Delivery O2 Flow Rate FiO2 11/21/24 15:11 80 18 Room Air 0.0 11/21/24 15:06 97 21 11/21/24 11:00 98.2 157/63 (94) Vital signs, stable ,afebrile. Pulse Oximetry reflects adequate oxygenation. BMI is 25, weight 53 kg General: well developed, well nourished. Awake , alert, and oriented x4, resting comfortably in the bed, in no acute distress . Skin: Warm, dry, no pallor, no rash or petechiae. HEENT: Atraumatic, normocephalic, EOMI, anicteric sclera B; pink conjunctiva; PERRLA, normal oropharynx, moist oral and nasal mucosa. Tympanic membrane , nose , throat clear. Neck: Trachea midline. Supple, full range of motion, no JVD, bruit , hepatojugular reflex , lymphadenopathy or masses, or other lesions Cardiac: Regular rhythm, regular rate no murmurs, rubs, or gallops. Normal S1 and S2, no S3 noticed. PMI is normal. Respiratory: Equal breath sounds bilaterally, no tachypnea; lungs clear to auscultation bilaterally, no wheezing ,rub or rales, or crackles. Chest wall is symmetric and without deformity. No signs of trauma. Chest wall is nontender. No signs of respiratory distress. Resonance is normal upon percussion bilaterally. Gastrointestinal: Abdomen symmetric, non-distended, soft, non-tender, normal bowel sounds x4 quadrant, normoactive, no hepatosplenomegaly , no masses , no bruit, no flank pain bilaterally. No voluntary guarding, rebound, or rigidity. No tenderness to percussion. No pulsatile masses. Equal femoral pulses. No Herron's sign or McBurney point tenderness. Back; no CVA tenderness bilaterally, no deformities. Neck and back are without deformity as well. No tenderness noted on palpation of the spinous processes. Spinous processes are midline. Cervical, thoracic, and lumbar paraspinal muscles are not tender and are without spasm. : Not indicated Musculoskeletal: Extremities, normal range of motion, non-tender, muscle strength 5/5 x 4. Negative Homans signs bilaterally on lower extremity. Distal pulses full symmetrical, no clubbing, cyanosis , edema. Neurological: Speech is clear, alert, and oriented x 4. No motor or sensory deficit, deep tendon reflexes normal, cerebellar intact. Cranial nerves II-XII intact. Psych: Alert and or appropriate, normal affect. Vascular: Good distal pulses, which are equal x4; capillary refill less than 2 seconds. Lymphatic, no lymphadenopathy. Result Diagram: 11/21/24 0632 11/21/24 0632 Coagulation Studies Laboratory Tests Test 11/20/24 11:58 D-Dimer 1.68 MG/L FEU (0-0.50) H D-Dimer Comment Problem\Assessment\Plan Plan Acute metabolic encephalopathy - likely due to UTI Has a underlying dementia Sepsis secondary to UTI Temperature 100.3 F-given Tylenol 650 mg p.o. once Elevated WBC WBC, tachycardic Urinalysis showed positive nitrite, large leukocyte esterase, too numerous to count WBC, 4+ bacteria Urine culture and blood culture ordered Procalcitonin negative. Lactic acid normal Received Rocephin 1 g IV in the ER Started Rocephin 2 g IV daily Started normal saline at 100 cc/hour Head CT showed no acute intracranial abnormality Chest x-ray hyperinflated with no acute cardiopulmonary abnormality Continue Tylenol 650 mg p.o. q.6h p.r.n. for fever Aspiration and fall precautions in place NPO until passes bedside swallow eval and then continue regular diet Pending PT evaluation Possible bilateral lower extremity cellulitis Edema could be due to poor mobility as well No significant erythema but warm to touch. But, patient also had fever Ordered bilateral venous ultrasound Continue Rocephin 2 g IV daily Normocytic normochromic anemia HGB 9.1 and hematocrit 27.5 No previous hemoglobin level available Iron studies ordered Possible underlying CKD Continue IV fluids Hypertension Has a amlodipine 5 mg and losartan 25 mg p.o. daily at home Started amlodipine 10 mg p.o. daily Hypothyroidism TSH ordered Continue home medication levothyroxine 25 mcg p.o. daily Dementia Continue home medication donepezil 5 mg p.o. daily DVT prophylaxis: Heparin 5000 units subcutaneous q.12h Diet: NPO until passes bedside swallow eval and then continue regular diet Date of Service: Nov 21, 2024 Billing Provider: MICHEAL DOWNS MD Common Visit Codes: [id number] INP/OBS CARE(HIGH) MICHEAL DOWNS MD Nov 21, 2024 16:51
[2024-11-21] MEDS ORDERED: magnesium citrate 296ml oral solution PO SCH (20:00)
[2024-11-22] VITALS (11 sets, daily range): BP systolic 153–174; BP diastolic 60–116; PULSE 72–98; RESP 16–22; TEMP 98–99.4; O2SAT 95–99
[2024-11-22] MEDS: guaiFENesin 200mg/20mg codeine phos 10ml UD oral syrup PO PRN (01:50)
[2024-11-22] MEDS: labetalol 20mg/4ml (5mg/ml) syringe IV ONE (03:18)
[2024-11-22 06:20] LABS: MEAN PLATELET VOLUME 7.2 FL (7.4-10.4); RED CELL DISTRIBUTION WIDTH 14.5 % (11.5-14.5)
[2024-11-22 07:38] LABS: CREATININE 0.69 MG/DL (0.40-0.90); TOTAL CARBON DIOXIDE 20.0 MMOL/L (24-32); eCRCL 40 ML/MIN; eGFR 82 ML/MIN
[2024-11-22] MEDS ORDERED: albuterol 60 PUFF/8GM Inhaler (90mcg/1 puff) IH PRN (09:08)
--- NOTE | 2024-11-22 14:34 | PROGRESS NOTE ---
Daily Progress Note Providers to CC Please disregard this entry duplicate thank you MB ~ Central Line/PICC still needed: N\A Antibiotic Timeout Antibiotic Ordered?: Yes MRSA Education MRSA Education Provided to pt: Yes Objective Vital Signs Date Time Temp Pulse Resp B/P (MAP) Pulse Ox O2 Delivery O2 Flow Rate FiO2 11/22/24 10:00 99.4 90 20 169/60 (96) 99 Room Air 11/22/24 08:00 0.0 21 Result Diagram: 11/22/24 0550 11/22/24 0550 Coagulation Studies Laboratory Tests Test 11/20/24 11:58 D-Dimer 1.68 MG/L FEU (0-0.50) H D-Dimer Comment Problem\Assessment\Plan Assesment /Plan Covid 19 present on admition. 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 once Elevated WBC WBC, tachycardic Urinalysis showed positive nitrite, large leukocyte esterase, too numerous to count WBC, 4+ bacteria Urine culture and blood culture ordered Procalcitonin negative. Lactic acid normal Received Rocephin 1 g IV in the ER Started Rocephin 2 g IV daily Started normal saline at 100 cc/hour Head CT showed no acute intracranial abnormality Chest x-ray hyperinflated with no acute cardiopulmonary abnormality Continue Tylenol 650 mg p.o. q.6h p.r.n. for fever Aspiration and fall precautions in place NPO until passes bedside swallow eval and then continue regular diet Pending PT evaluation Possible bilateral lower extremity cellulitis Edema could be due to poor mobility as well No significant erythema but warm to touch. But, patient also had fever Ordered bilateral venous ultrasound Continue Rocephin 2 g IV daily Normocytic normochromic anemia HGB 9.1 and hematocrit 27.5 No previous hemoglobin level available Iron studies ordered Possible underlying CKD Continue IV fluids Hypertension Has a amlodipine 5 mg and losartan 25 mg p.o. daily at home Started amlodipine 10 mg p.o. daily Hypothyroidism TSH ordered Continue home medication levothyroxine 25 mcg p.o. daily Dementia Continue home medication donepezil 5 mg p.o. daily DVT prophylaxis: Heparin 5000 units subcutaneous q.12h Diet: NPO until passes bedside swallow eval and then continue regular diet Sepsis Screening Reassessment Date: Nov 22, 2024 Date of Service: Nov 22, 2024 Billing Provider: MICHEAL DOWNS MD Common Visit Codes: NOT BILLABLE MICHEAL DOWNS MD Nov 22, 2024 14:34
[2024-11-22] MEDS: hydrALAZINE 20mg/ml inj. IV PRN (17:52)
--- NOTE | 2024-11-22 18:37 | PROGRESS NOTE ---
Daily Progress Note Providers to CC ~ feels better today less cough less shortness of breath Central Line/PICC still needed: No Rosenthal-Non Protocol Rosenthal Indications Met/Not Met: F/C Indications Not Met Antibiotic Timeout Antibiotic Ordered?: Yes MRSA Education MRSA Education Provided to pt: Yes Subjective As above Objective Vital Signs Date Time Temp Pulse Resp B/P (MAP) Pulse Ox O2 Delivery O2 Flow Rate FiO2 11/22/24 15:00 98.0 83 17 170/61 (97) 97 Room Air 11/22/24 08:00 0.0 21 Vital signs, stable ,afebrile. Pulse Oximetry reflects adequate oxygenation. General: well developed, well nourished. Awake , alert, and oriented x4, resting comfortably in the bed, in no acute distress . Skin: Warm, dry, no pallor, no rash or petechiae. HEENT: Atraumatic, normocephalic, EOMI, anicteric sclera B; pink conjunctiva; PERRLA, normal oropharynx, moist oral and nasal mucosa. Tympanic membrane , nose , throat clear. Neck: Trachea midline. Supple, full range of motion, no JVD, bruit , hepatojugular reflex , lymphadenopathy or masses, or other lesions Cardiac: Regular rhythm, regular rate no murmurs, rubs, or gallops. Normal S1 and S2, no S3 noticed. PMI is normal. Respiratory: Equal breath sounds bilaterally, no tachypnea; lungs clear to auscultation bilaterally, no wheezing ,rub or rales, or crackles. Chest wall is symmetric and without deformity. No signs of trauma. Chest wall is nontender. No signs of respiratory distress. Resonance is normal upon percussion bilaterally. Gastrointestinal: Abdomen symmetric, non-distended, soft, non-tender, normal bowel sounds x4 quadrant, normoactive, no hepatosplenomegaly , no masses , no bruit, no flank pain bilaterally. No voluntary guarding, rebound, or rigidity. No tenderness to percussion. No pulsatile masses. Equal femoral pulses. No Herron's sign or McBurney point tenderness. Back; no CVA tenderness bilaterally, no deformities. Neck and back are without deformity as well. No tenderness noted on palpation of the spinous processes. Spinous processes are midline. Cervical, thoracic, and lumbar paraspinal muscles are not tender and are without spasm. Musculoskeletal: Extremities, normal range of motion, non-tender, muscle strength 5/5 x 4. Negative Homans signs bilaterally on lower extremity. Distal pulses full symmetrical, no clubbing, cyanosis , edema. Neurological: Speech is clear, alert, and oriented x 4. No motor or sensory deficit, deep tendon reflexes normal, cerebellar intact. Cranial nerves II-XII intact. Psych: Alert and or appropriate, normal affect. Vascular: Good distal pulses, which are equal x4; capillary refill less than 2 seconds. Lymphatic, no lymphadenopathy. Result Diagram: 11/22/24 0550 11/22/24 0550 Coagulation Studies Laboratory Tests Test 11/20/24 11:58 D-Dimer 1.68 MG/L FEU (0-0.50) H D-Dimer Comment Problem\Assessment\Plan Assesment /Plan Covid 19 present on admition. 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 once Elevated WBC WBC, tachycardic Urinalysis showed positive nitrite, large leukocyte esterase, too numerous to count WBC, 4+ bacteria Urine culture and blood culture ordered Procalcitonin negative. Lactic acid normal Received Rocephin 1 g IV in the ER Started Rocephin 2 g IV daily Started normal saline at 100 cc/hour Head CT showed no acute intracranial abnormality Chest x-ray hyperinflated with no acute cardiopulmonary abnormality Continue Tylenol 650 mg p.o. q.6h p.r.n. for fever Aspiration and fall precautions in place NPO until passes bedside swallow eval and then continue regular diet Pending PT evaluation Possible bilateral lower extremity cellulitis Edema could be due to poor mobility as well No significant erythema but warm to touch. But, patient also had fever Ordered bilateral venous ultrasound Continue Rocephin 2 g IV daily Normocytic normochromic anemia HGB 9.1 and hematocrit 27.5 No previous hemoglobin level available Iron studies ordered Possible underlying CKD Continue IV fluids Hypertension Has a amlodipine 5 mg and losartan 25 mg p.o. daily at home Started amlodipine 10 mg p.o. daily Hypothyroidism TSH ordered Continue home medication levothyroxine 25 mcg p.o. daily Dementia Continue home medication donepezil 5 mg p.o. daily DVT prophylaxis: Heparin 5000 units subcutaneous q.12h Diet: NPO until passes bedside swallow eval and then continue regular diet Sepsis Screening Reassessment Date: Nov 22, 2024 Date of Service: Nov 22, 2024 Billing Provider: MICHEAL DOWNS MD Common Visit Codes: [id number] INP/OBS CARE(HIGH) MICHEAL DOWNS MD Nov 22, 2024 18:37
[2024-11-23 02:00] VITALS: BP 142/75; PULSE 89; RESP 12; TEMP 98; O2SAT 95
[2024-11-23] MEDS: ondansetron/PF 4mg/2ml inj IV PRN (05:32)
[2024-11-23 07:00] VITALS: BP 155/83; PULSE 95; RESP 16; TEMP 98.7; O2SAT 96
[2024-11-23 07:36] LABS: MEAN PLATELET VOLUME 7.3 FL (7.4-10.4); RED CELL DISTRIBUTION WIDTH 14.7 % (11.5-14.5)
[2024-11-23 07:52] LABS: CREATININE 0.70 MG/DL (0.40-0.90); TOTAL CARBON DIOXIDE 21.6 MMOL/L (24-32); eCRCL 39 ML/MIN; eGFR 81 ML/MIN
[2024-11-23 08:00] VITALS: RESP 16; O2SAT 96
[2024-11-23 08:04] VITALS: PULSE 88; RESP 16; O2SAT 97
--- NOTE | 2024-11-23 13:59 | DISCHARGE SUMMARY ---
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 She tested COVID-19 positive a few days ago. Tonight she was found minimally responsive, wheezing and somnolent; EMS gave bronchodilator treatments and O2 (saturation in the 90s). In ED she is somnolent but arousable to voice and follows some commands, speech difficult to understand. No clear focal neurologic deficit." Hospital Course Diagnostic findings were notable for urinalysis revealing urinary tract infection, CT chest revealing pneumonia, COVID-19 antigen positive. Patient was treated with intravenous fluids and empirical antibiotics. Urine culture resulted for corynebacterium. Patient did not experience further complications throughout the entire hospital stay and remained clinically and hemodynamically stable. Patient was not seen and examined on the day of discharge. Patient was discharged to rehab before I was able to assess her. *Problems/Diagnosis: (1) UTI (urinary tract infection) Status: Acute (2) Pneumonia Status: Acute (3) COVID-19 Status: Acute Total Time Spent on D/C: Up to 30 Minutes Date of Service: Nov 23, 2024 Billing Provider: DIMITRIS MOFFETT Common Visit Codes: NOT BILLABLE DIMITRIS MOFFETT Nov 23, 2024 13:59
--- NOTE | 2024-11-23 18:56 | VASCULAR REPORT ---
CLINICAL HISTORY: Shortness of breath, lower extremity edema, COVID positive TECHNIQUE: Color and duplex doppler imaging of the bilateral lower extremity veins was performed. Vessel compression if possible was also performed. WID: COMPARISON: None FINDINGS: Right Lower Extremity: Right common femoral vein: Normal compressibility and flow. Right femoral vein: Normal compressibility and flow. Right popliteal vein: Normal compressibility and flow. Proximal calf veins are normally compressible. Left Lower Extremity: Left common femoral vein: Normal compressibility and flow. Left femoral vein: Normal compressibility and flow. Left popliteal vein: Normal compressibility and flow. Proximal calf veins are normally compressible. IMPRESSION: 1. NO SONOGRAPHIC EVIDENCE FOR DEEP VENOUS THROMBOSIS IN THE BILATERAL LOWER EXTREMITY VEINS.
== END 2024-11-23 10:09 | DRG 177 ==
LOC: ER 02:05 → ED HOLD 04:42 → PCU 3S 18:12
PROVIDERS: ADMIT Internal Medicine; ATTEND Family Medicine
DX: U07.1 COVID-19 (principal); G93.41 Metabolic encephalopathy; J12.82 Pneumonia due to coronavirus disease 2019; N17.0 Acute kidney failure with tubular necrosis; L03.116 Cellulitis of left lower limb; N39.0 Urinary tract infection, site not specified; J44.0 Chronic obstructive pulmonary disease with (acute) lower respiratory infection; L03.115 Cellulitis of right lower limb; D64.9 Anemia, unspecified; E03.9 Hypothyroidism, unspecified; F03.90 Unspecified dementia, unspecified severity, without behavioral disturbance, psychotic disturbance, mood disturbance, and anxiety; E86.0 Dehydration; G89.29 Other chronic pain; I10 Essential (primary) hypertension; F32.A Depression, unspecified; Z88.5 Allergy status to narcotic agent; Z91.041 Radiographic dye allergy status; Z79.82 Long term (current) use of aspirin; Z79.899 Other long term (current) drug therapy; Z90.710 Acquired absence of both cervix and uterus
CPT/HCPCS: 36415; 36600; 70450; 71045; 71250; 74176; 80048; 80053; 80061; 80305; 80320; 81001; 82140; 82530; 82570; 82607; 82728; 82803; 82948; 83540; 83550; 83605; 83690; 83735; 83880; 83930; 83935; 84100; 84105; 84145; 84156; 84300; 84443; 84484; 85007; 85018; 85025; 85379; 87040; 87081; 87088; 87207; 87324; 87449; 87811; 93005; 93970; 94640; 94760; 96374; 96375; 97110; 97116; 97162; 99285; A4615; A5200; A6212; A6213; C1758; G0378; J0131; J0360; J0456; J0696; J1100; J1644; J1815; J2405; J3490; J7030; J7040